=== PATIENT | male | born 1970 | race Caucasian/White ===

== ENCOUNTER 2017-04-09 07:09 | Inpatient (IN) | payer BC ==
[2017-04-09] MEDS ORDERED: POVIDONE-IODINE 20 ML in SODIUM CL IRRIG SOLUTION 500 ML IRR ONE (08:18)
[2017-04-09] MEDS ORDERED: ACETAMINOPHEN 325 MG TAB PO ONE (08:18)
[2017-04-09] MEDS ORDERED: DEXAMETHASONE 4 MG/ML VIAL IVP ONE (08:18)
[2017-04-09] MEDS ORDERED: ROPIVACAINE 0.2% 80 MG, EPINEPHrine 0.2 MG, KETOROLAC TROMETHAMINE 30 MG in BAG 0 ML IU ONE (08:18)
[2017-04-09] MEDS ORDERED: ceFAZolin 2 GM/DEXTROSE 100 ML IV ONE (08:18)
[2017-04-09] MEDS ORDERED: TRANEXAMIC ACID 1,900 MG in NS 100 ML IV ONE (08:18)
[2017-04-09] MEDS ORDERED: FAMOTIDINE 20 MG TAB PO ONE (08:18)
[2017-04-09] MEDS ORDERED: LR 1,000 ML IV ONE (09:39)
[2017-04-09] MEDS ORDERED: LIDOCAINE 1% 2 ML INJ ID PRN (09:39)
[2017-04-09] MEDS ORDERED: ceFAZolin 1 GM VIAL ONE (11:10)
[2017-04-09] MEDS ORDERED: ceFAZolin 1 GM/5 ML SYR ONE ×2 (11:10→12:04)
--- NOTE | 2017-04-09 11:31 | PDHPUP ---
History & Physical Update H&P update statement: This history and physical update is based on an assessment of the patient which was completed after admission or registration (within 24 hours), but prior to the surgery/procedure. H&P update: H&P reviewed & patient examined, no change in patient's condition since H&P completed
[2017-04-09] MEDS ORDERED: MIDAZOLAM 2 MG/2 ML VIAL IVP ONE (11:39)
--- NOTE | 2017-04-09 11:41 | PDANEPAE ---
ANE History of Present Illness Right BHR ANE Past Medical History - Cardiovascular History Hx Hypertension: No Hx Arrhythmias: No Hx Chest Pain: No Hx Coronary Artery / Peripheral Vascular Disease: No Hx CHF / Valvular Disease: No Hx Palpitations: No - Pulmonary History Hx COPD: No Hx Asthma/Reactive Airway Disease: No Hx Recent Upper Respiratory Infection: No Hx Oxygen in Use at Home: No Hx Sleep Apnea: No Sleep Apnea Screening Result - Last Documented: Negative Pulmonary History Comment: uses a "mouth guard" for mild EDUARDO - Neurologic History Hx Cerebrovascular Accident: No Hx Seizures: No Hx Dementia: No - Endocrine History Hx Diabetes: No - Renal History Hx Renal Disorders: No - Liver History Hx Hepatic Disorders: No - Neurological & Psychiatric Hx Hx Neurological and Psychiatric Disorders: No - Cancer History Hx Cancer: No - Congenital Disorder History Hx Congenital Disorders: No - GI History Hx Gastrointestinal Disorders: Yes Gastrointestinal History Comment: heartburn - Other Health History Other Health History: OA R hip - Chronic Pain History Chronic Pain: No - Surgical History Prior Surgeries: scope knee surgery over -early . turbinate reduction 2006. inguinal hernia -2010 ANE Review of Systems Review of Systems: - Exercise capacity METS (RN): 4 METS ANE Patient History - Allergies Allergies/Adverse Reactions: andrea Allergy (Severe, Unverified 03/14/17 09:37) shellfish derived Allergy (Severe, Unverified 04/09/17 09:51) spandex Allergy (Uncoded 03/18/17 14:21) Other-Enter Comments - Home Medications Home Medications: EPINEPHrine [Epipen 0.3 MG] 0.3 mg IM ONCE PRN 03/14/17 [Last Taken Unknown] Famotidine [Pepcid AC] 20 mg PO Q12 03/14/17 [Last Taken 04/09/17 06:00] Ibuprofen [Motrin (*)] 200 - 400 mg PO DAILY PRN 03/14/17 [Last Taken 04/03/17] Naproxen Sodium [Aleve 220 MG (*)] 220 mg PO DAILY PRN 03/14/17 [Last Taken ] Omeprazole [Prilosec 20 mg] 20 mg PO DAILY PRN 03/14/17 [Last Taken Unknown] - NPO status NPO Status: no food or drink >8 hours NPO Since - Liquids (Date): 04/08/17 NPO Since - Liquids (Time): 22:00 NPO Since - Solids (Date): 04/08/17 NPO Since - Solids (Time): 21:00 - Anes Hx Anes Hx: post operative nausea - Smoking Hx Smoking Status: Never smoked - Alcohol Use Alcohol Use: Occasionally - Family Anes Hx Family Anes Hx: none ANE Labs/Vital Signs - Vital Signs Blood Pressure: 131/76 Heart Rate: 55 Respiratory Rate: 16 O2 Sat (%): 97 Height: 182.88 cm Weight: 96.162 kg ANE Physical Exam - Airway Mallampati Score: Class 1 Mouth exam: normal dental/mouth exam - Pulmonary Pulmonary: no respiratory distress - Cardiovascular Cardiovascular: regular rate and rhythym - ASA Status ASA Status: II ANE Anesthesia Plan Anesthesia Plan: spinal (R/B/A explained and patient agrees to proceed)
[2017-04-09] MEDS ORDERED: DEXAMETHASONE 4 MG/ML VIAL ONE (12:06)
[2017-04-09] MEDS ORDERED: PROPOFOL/EMULSION 500 MG/50 ML BOTTLE IV ONE ×2 (12:06→12:51)
[2017-04-09] MEDS ORDERED: fentaNYL 100 MCG/2 ML INJ ONE (12:06)
[2017-04-09] MEDS ORDERED: ONDANSETRON 4 MG/2 ML VIAL ONE (12:07)
[2017-04-09] MEDS ORDERED: LIDOCAINE 2% 100 MG/5 ML SYR ONE (12:07)
[2017-04-09] MEDS ORDERED: epHEDrine SULFATE 10 MG/ML SYR ONE ×3 (12:55→13:14)
[2017-04-09] MEDS ORDERED: MEPERIDINE 25 MG/ML SYR IVP PRN ×2 (13:03→14:25)
[2017-04-09] MEDS ORDERED: METOCLOPRAMIDE 10 MG/2 ML VIAL IVP PRN ×2 (13:03→14:00)
[2017-04-09] MEDS ORDERED: HYDROCODONE/APAP 5/325 TAB PO PRN ×3 (13:03→18:06)
[2017-04-09] MEDS ORDERED: NALOXONE HCL 0.4 MG/ML INJ IVP PRN ×2 (13:03→14:25)
[2017-04-09] MEDS ORDERED: DEXAMETHASONE 4 MG/ML VIAL IVP PRN (13:03)
[2017-04-09] MEDS ORDERED: LR 500 ML IV PRN (13:03)
[2017-04-09] MEDS ORDERED: PROMETHAZINE HCL 25 MG/ML INJ IVP PRN ×2 (13:03→14:00)
[2017-04-09] MEDS ORDERED: ALBUTEROL 3 ML DEYVIAL IH PRN ×2 (13:03→14:25)
[2017-04-09] MEDS ORDERED: ONDANSETRON 4 MG/2 ML VIAL IVP PRN ×2 (13:03→14:00)
[2017-04-09] MEDS ORDERED: ACETAMINOPHEN 500 MG TAB PO PRN (13:03)
[2017-04-09] MEDS ORDERED: LABETALOL HCL 50 MG/10 ML SYR IVP PRN (13:03)
[2017-04-09] MEDS ORDERED: OXYCODONE/APAP 5/325 TAB PO PRN ×2 (13:03→14:25)
[2017-04-09] MEDS ORDERED: fentaNYL 100 MCG/2 ML INJ IVP PRN ×2 (13:03→14:25)
[2017-04-09] MEDS ORDERED: PHENYLEPHRINE HCL 100 MCG/ML SYR ONE (13:14)
[2017-04-09] MEDS ORDERED: PROPOFOL 200 MG/20 ML VIAL ONE ×2 (13:31→13:49)
[2017-04-09] MEDS ORDERED: TAPENTADOL HCL 50 MG TAB PO PRN (14:00)
[2017-04-09] MEDS ORDERED: LACTULOSE 20 GM/30 ML UDCUP PO PRN (14:00)
[2017-04-09] MEDS ORDERED: MAGNESIUM HYDROXIDE 30 ML UDCUP PO PRN (14:00)
[2017-04-09] MEDS ORDERED: PROMETHAZINE HCL 25 MG SUPPR PR PRN (14:00)
[2017-04-09] MEDS ORDERED: LR 1,000 ML IV SCH (14:00)
[2017-04-09] MEDS ORDERED: BISACODYL 10 MG SUPP PR PRN (14:00)
[2017-04-09] MEDS ORDERED: TEMAZEPAM 15 MG CAP PO PRN (14:00)
[2017-04-09] MEDS ORDERED: DIPHENOXYLATE/ATROPINE LOMOTIL 1 TAB PO PRN (14:00)
[2017-04-09] MEDS ORDERED: ONDANSETRON DISINTEGRATING 4 MG TAB PO PRN (14:00)
[2017-04-09] MEDS ORDERED: POLYETHYLENE GLYCOL 3350 17 GM PKT PO PRN (14:00)
--- NOTE | 2017-04-09 14:00 | POSTOPPROG ---
Post Op Note Date of Operation: 04/09/17 Surgeon: Travis Cooley Mill Tender Warm Up: Connor Mayberry /Angie Cline Anesthesiologist: Dr. Gui Churchill Anesthesia: IV Sedation, Spinal Post-op Diagnosis: right hip severe degenerative arthritis. Procedure: Right hip Shana hip resurfacing arthroplasty. Inf/Abcess present in the surg proc area at time of surgery?: No EBL: 100-500
[2017-04-09] MEDS ORDERED: Epinephrine [Epipen 0.3 Mg] 0.3 MG IM PRN (14:04)
[2017-04-09] MEDS ORDERED: LABETALOL HCL 5 MG/ML 20 ML MDV IVP PRN (14:25)
--- NOTE | 2017-04-09 14:27 | POSTANESTH ---
Post Anesthetic Evaluation Cardiovascular Status: Normal, Stable Respiratory Status: Normal, Stable Level of Consciousness/Mental Status: Can Participate in Eval Pain Control: Adequate, Prn Tx Ordered Nausea/Vomiting Control: Adequate, Prn Tx Ordered Complications Possibly Related to Anesthesia: None Noted
--- NOTE | 2017-04-09 15:19 | GOP ---
[f rep st] OPERATIVE REPORT DATE OF OPERATION: 04/09/2017 SURGEON: Travis Cooley MD [employer] CUSTODIAN: Connor Mayberry and Angie Cline. ANESTHESIA: A combination of Marcaine, spinal, and IV sedation. ANESTHESIOLOGIST: Dr. Gui Churchill. PREOPERATIVE DIAGNOSIS: Right hip severe degenerative arthritis. POSTOPERATIVE DIAGNOSIS: Right hip severe degenerative arthritis. PROCEDURE PERFORMED: Right hip Shana hip resurfacing arthroplasty. FINDINGS: ESTIMATED BLOOD LOSS: The estimated blood loss was about 400 mL. DESCRIPTION OF PROCEDURE: The patient was given 2 g of IV Ancef preoperatively within 60 minutes of surgery. He also received IV tranexamic acid at a dose of 20 mg/kg. He was placed on the operating room table and given a spinal anesthesia with Marcaine by Dr. Churchill. He was then placed supine and g iven IV sedation. A Paredes catheter was not used. He wore a compressive stocking and SCD on the nono perative leg. He was rolled to the left lateral decubitus position. An axillary roll was used, and all pressure points were carefully padded. The position was secured with the pegboard table attachme nt. I was careful to lock his pelvis in a vertical position. His perineum was isolated with plastic adhesive drapes. The right hip and right lower extremity were prepped with ChloraPrep. They were d raped free using sterile sheets, stockinette, and Ioban plastic drape. The [employer] time-out was performed to verify the correct patient identity and the c orrect surgical side. The [place] time-out was also performed. I made a 6-7 inch straight oblique posterolateral hip skin incision. The subcutaneous tissues were s harply divided, and hemostasis was obtained using electrocautery. His fascia fay was identified and split along the axis of its fibers. I then curved posteriorly and proximally, and split the fascia of the gluteus jovita and bluntly split the muscle fibers in line with their orientation. The sciat ic nerve was identified and protected throughout the procedure. The [place] self-retaining retracto r was inserted. The external rotators and the posterior hip capsule were divided as separate layers at the base of the femoral neck, tagged and reflected posteriorly. The gluteus jovita tendon was di vided and tagged in order to improve exposure and release tension on the sciatic nerve. His hip was dislocated posteriorly. I used the sizing gauge to check the diameter of the neck and concluded that 50 mm was the proper head size. I performed a circumferential capsulotomy. I was able to retract som wilson femoral head anteriorly and superiorly, and hold it out of place with appropriate retractors. The remnant of the badly damaged labrum was completely excised. His acetabulum was reamed sequentially up to 56 mm. I selected the Shana monoblock porous-coated acetabular component with an outside diameter of 56 mm. This was firmly impacted and was a very tight fit. I was very careful to determi ne proper inclination and proper anteversion. I used the transverse acetabular ligament and other ac etabular bony landmarks to help determine proper orientation of the cup. He had some large anterior inferior osteophytes, which I removed with an osteotome and rongeur. I was careful to leave a lip of bone and capsule extending beyond the anterior inferior lip of the metal cup. I then returned to preparation of the femoral head. Using appropriate jigs and guides, I inserted a guide pin into the femoral head and neck. I was careful to position it in such a way that there woul d be no notching of the neck. The large sterile metal goniometer was used to check the neck shaft an gle. I reamed over the guide pin and inserted the reaming guide. I then used the cylindrical reamer down to the head and neck junction. This was followed by the flat reamer and the chamfer reamer. Som wilson head was sized for 50 mm. There was no impingement or damage in the neck. I drilled a small hole in the lesser trochanter and inserted a suction cannula to create negative pressure in the medullary canal. Small holes were drilled on the flat and chamfered surfaces of the prepared head for cement anchors. The head was thoroughly cleaned with the pulsating lavage and carefully dried. I used a Ca rboJet device to blow dry the cancellous surfaces. A single batch of Simplex cement with tobramycin was mixed. At about 50 seconds, I poured the liquid cement into the head component, inserted it onto the prepared femoral head and impacted it into place. Excess cement was removed before it hardened. The acetabulum was irrigated, cleaned, and inspected, and the hip was reduced. Stability and range of motion were checked. I placed my finger along the anterior aspect of the acetabular component an d flexed the hip to 110 degrees. There was no anterior impingement. The suction cannula on the less er trochanter was removed. The wound was thoroughly irrigated with a dilute Betadine solution. 40 m L of the joint anesthetic cocktail were injected into the capsule, the deep musculature, and the subc utaneous tissues along the skin edges. The sciatic nerve was reinspected and looked unharmed. The external rotators and the posterior capsu le were repaired in separate layers with #2 FiberWire sutures through drill holes in the greater troc hanter. This provided a very strong posterior capsular and external rotator repair. The gluteus max imus tendon was repaired with 2 interrupted [id number] #2 FiberWire sutures. The fascia fay wa s repaired first with 2 interrupted [id number] #2 FiberWire sutures, followed by a running #2 ba rbed Ethicon Stratafix PDO suture. Subcutaneous tissues were closed with a running 0 barbed Ethicon Stratafix Monoderm suture. The skin was closed with a running 3-0 barbed Ethicon Stratafix Monoderm subcuticular suture. The skin edges were reapproximated and sealed with Dermabond glue. The wound w as covered with a strip of Telfa, and everything was held in place with a piece of clear plastic Tega derm. IMPLANTS: I used a [employer] [place] hip resurfacing system. The acetabular component was 56 mm in diameter and press-fit. The femoral head was 50 mm and cemented. He was awakened from ane sthesia and [facility] A long-leg compressive stocking an d SCD were applied to the operative leg. He wore a stocking and SCD on the opposite leg during the p rocedure. An abduction pillow was placed between his knees. He was taken to PACU in satisfactory co ndition. COMPLICATIONS: There were no recognized intraoperative complications. COUNTS: The sponge and needle count were correct on 2 occasions. Connor Mayberry and Angie Cline acted as surgical assistants. Their assistance was a medical necessi ty for safe completion of the procedure. /[id number]/MODL
[2017-04-09] MEDS: KETOROLAC 30 MG/1 ML SDV IVP PRN (15:53)
[2017-04-09] MEDS: TRANEXAMIC ACID 650 MG TAB PO SCH ×2 (15:54→23:08)
[2017-04-09] MEDS: CYCLOBENZAPRINE 10 MG TAB PO PRN (15:55)
[2017-04-09] MEDS: ACETAMINOPHEN 325 MG TAB PO SCH ×2 (18:44→23:08)
[2017-04-09] MEDS: oxyCODONE IR 5 MG TAB PO PRN (18:45)
[2017-04-09] MEDS: SENNOSIDES/DOCUSATE SODIUM TAB PO SCH (20:11)
[2017-04-09] MEDS: FAMOTIDINE 20 MG TAB PO SCH (20:12)
[2017-04-09] MEDS: ceFAZolin 2 GM/DEXTROSE 100 ML IV SCH (20:12)
[2017-04-09] MEDS: ASPIRIN 325 MG TAB PO SCH (23:08)
[2017-04-10] MEDS: ceFAZolin 2 GM/DEXTROSE 100 ML IV SCH (04:35)
[2017-04-10 05:14] LABS: HEMATOCRIT 35.5 % (40.0-51.0); HEMOGLOBIN 12.7 g/dL (13.7-17.5)
[2017-04-10] MEDS: TRANEXAMIC ACID 650 MG TAB PO SCH (05:19)
[2017-04-10] MEDS: ACETAMINOPHEN 325 MG TAB PO SCH ×2 (05:19→11:23)
--- NOTE | 2017-04-10 07:20 | SOAPPROG ---
SOAP Progress Note Assessment/Plan: Assessment: Afebrile. Awake alert. Moderate pain. Sciatic nerve intact. Hemoglobin and hematocrit are adequate. Postop films look excellent. He has been up and taking a few steps in the room. Plan: Continue physical therapy today for ambulation and stairs. Discharged later today. 04/10/17 07:19 Objective: Vital Signs Temp Pulse Resp BP Pulse Ox 36.8 C 72 16 119/67 98 04/10/17 04:00 04/10/17 04:00 04/10/17 04:00 04/10/17 04:00 04/10/17 04:00 Laboratory Results 04/10/17 04:34 04/09/17 04/10/17 04/11/17 05:59 05:59 05:59 Intake Total 2760 200 Output Total 550 Balance 2210 200 ICD10 Worksheet Patient Problems: Problems Problem Status Onset Osteoarthritis of right hip Acute
[2017-04-10] MEDS: KETOROLAC 30 MG/1 ML SDV IVP PRN (07:38)
[2017-04-10] MEDS: FAMOTIDINE 20 MG TAB PO SCH (07:38)
--- NOTE | 2017-04-10 07:38 | GDS ---
[f rep st] DISCHARGE SUMMARY ADMISSION DIAGNOSIS: Right hip severe degenerative arthritis. DISCHARGE DIAGNOSIS: Right hip severe degenerative arthritis. OPERATION PERFORMED: 04/09/2017, right hip Shana hip resurfacing arthroplasty. POSTOPERATIVE COMPLICATIONS: None. CONDITION ON DISCHARGE: Improved. DESCRIPTION OF HOSPITAL COURSE: The patient was admitted to the hospital on the morning of surgery. His preoperative CBC was normal. The same day, under a combination of Marcaine, spinal, and IV odalis tion, he underwent a right hip Shana hip resurfacing arthroplasty. Postoperatively, he was rick ladarius with multimodal DVT prophylaxis, including aspirin and early mobilization. On the first postoper ative day, his hemoglobin and hematocrit were 12.7 and 35.5. He was seen by Physical Therapy and enoc e good progress with ambulation and stairs. By the time of discharge, he was afebrile and was indepe ndent walking. DISPOSITION: The patient discharged to his home. He will go to outpatient physical therapy in [facility] next week. Continue aspirin 325 mg daily for 21 days. He has prescriptions for oxycodone and tram adol for pain control. He may progress to full weightbearing on the right as tolerated. Use an abdu ction pillow in bed for 3 weeks. Use LADARIUS stockings for 1 week. I will see him back in the office on April 29, 2017. If there are any problems, he is to call me at the office. /[id number]/MODL
[2017-04-10] MEDS: SENNOSIDES/DOCUSATE SODIUM TAB PO SCH (07:39)
[2017-04-10] MEDS: CYCLOBENZAPRINE 10 MG TAB PO PRN (07:40)
[2017-04-10] MEDS: ASPIRIN 325 MG TAB PO SCH (07:40)
[2017-04-10] MEDS: oxyCODONE IR 5 MG TAB PO PRN ×2 (07:41→11:18)
[2017-04-10 07:51] VITALS: BP 116/63; PULSE 69; RESP 18; TEMP 98.1; O2SAT 96
[2017-04-10] MEDS ORDERED: FERROUS SULFATE 140 MG TAB.ER PO SCH (09:00)
--- NOTE | 2017-04-10 14:08 | ASDISCHSUM ---
Discharge Information Plan Status:Home with No Needs Medically Cleared to Leave: Discharge Date:04/10/2017 11:53 AM CM D/C Disposition:Home, Routine, Self-Care ADT D/C Disposition:Home, Routine, Self-Care Projected Discharge Date:04/10/2017 11:53 AM Transportation at D/C: Discharge Delay Reason: Follow-Up Date:04/10/2017 11:53 AM Discharge Slot: Final Diagnosis: Placement Information Patient Contact Information Contact Name:CHIOMAJACOB Relationship: Address:[address] [place] Alternate Phone: State/Zip Code:[place] [address] Email: Financial Information Financial Class:HMO and PPO Plans Primary Plan Desc:[employer]AN Primary Plan Number:[id number] Secondary Plan Desc: Secondary Plan Number: Assessment Information Intervention Information
--- NOTE | 2017-04-10 14:12 | ASMTCMCOM ---
CM Note CM Note Notes: Pt medically stable for d/c, no CM d/c needs identified. Pt will f/u w outpat PT. Date Signed: 04/10/2017 02:11 PM Electronically Signed By:IDANIA Nagel
== END 2017-04-10 11:53 | disposition home or self-care (01) | DRG 470 ==
LOC: F3N 07:09
PROVIDERS: ADMIT Orthopaedic Surgery; ATTEND Orthopaedic Surgery
PROC: 0SR90J9 Replacement of Right Hip Joint with Synthetic Substitute, Cemented, Open Approach (ICD-10-PCS; principal; 2017-04-09 12:15)
DX: M16.11 Unilateral primary osteoarthritis, right hip (principal); G47.33 Obstructive sleep apnea (adult) (pediatric)
CPT/HCPCS: 97116-GP; 97161-GP; 97165-GO; 97535-GO; C1713; J0171; J0690; J1100; J1885; J2001; J2250; J2370; J2405; J2704; J2795; J3010